=== PATIENT | male | born 1965 | race Caucasian/White ===

== ENCOUNTER 2018-11-28 14:33 | Emergency (ER) | payer OTHER ==
[~2018-11-28] VITALS: Ht 152.4 cm; Wt 108.0 kg
[2018-11-28] MEDS ORDERED: NORVASC2.5 MG (14:45)
[2018-11-28] MEDS ORDERED: PROTONIX40 M1 (14:45)
== END 2018-11-28 19:31 | disposition home or self-care (01) ==
LOC: ER 14:33
DX: N20.0 Calculus of kidney (principal); N20.1 Calculus of ureter; R10.31 Right lower quadrant pain